=== PATIENT | male | born 1980 | race Caucasian/White ===

== ENCOUNTER 2019-04-22 07:18 | Emergency (ER) | payer OTHER ==
[~2019-04-22] VITALS: Ht 167.6 cm; Wt 85.0 kg
[~2019-04-22 07:18] MED LIST: CARB15DR91 EACH EAR; DOCU-28 PO; HYDR25SU32 RC; IBUP-1051 PO; IBUP-1984 PO
[2019-04-22 07:20] VITALS: BP 106/72
[2019-04-22] MEDS ORDERED: BENZ-16 PO (07:34)
== END 2019-04-22 08:01 | disposition home or self-care (01) ==
LOC: ER 07:18
DX: J06.9 Acute upper respiratory infection, unspecified (principal); F32.9 Major depressive disorder, single episode, unspecified; Z79.899 Other long term (current) drug therapy
CPT/HCPCS: 99283

== ENCOUNTER 2019-04-26 01:00 | Emergency (ER) | payer SELFPAY ==
[~2019-04-26] VITALS: Ht 167.6 cm; Wt 80.9 kg
[~2019-04-26 01:00] MED LIST changes: +BENZ-16 PO
[2019-04-26] MEDS ORDERED: ALBU18HF2 INH (02:09)
[2019-04-26] MEDS ORDERED: DOXY100C43 PO (02:09)
[2019-04-26] MEDS ORDERED: PRED20TA PO (02:09)
[2019-04-26 02:21] VITALS: BP 110/73
== END 2019-04-26 02:27 | disposition home or self-care (01) ==
LOC: ER 01:01
DX: J20.9 Acute bronchitis, unspecified (principal); F32.9 Major depressive disorder, single episode, unspecified; F17.210 Nicotine dependence, cigarettes, uncomplicated; Z79.899 Other long term (current) drug therapy
CPT/HCPCS: 93005; 99283; 99406

== ENCOUNTER 2019-09-20 06:31 | Emergency (ER) | payer OTHER ==
[~2019-09-20] VITALS: Ht 167.6 cm; Wt 77.3 kg
[~2019-09-20 06:31] MED LIST changes: +ALBU18HF2 INH; -BENZ-16 PO
[2019-09-20 06:40] VITALS: BP 122/71
[2019-09-20] MEDS ORDERED: proparacaine 0.5% ophthalmic drops 15ml EACHEYE ONE (06:50)
[2019-09-20] MEDS ORDERED: ERYT1OIN6 EACHEYE (07:02)
== END 2019-09-20 07:09 | disposition home or self-care (01) ==
LOC: ER 06:32
DX: H10.33 Unspecified acute conjunctivitis, bilateral (principal); F32.9 Major depressive disorder, single episode, unspecified; Z87.01 Personal history of pneumonia (recurrent); Z79.2 Long term (current) use of antibiotics; Z79.899 Other long term (current) drug therapy
CPT/HCPCS: 99283

== ENCOUNTER 2023-04-17 19:16 | Emergency (ER) | payer SELFPAY ==
[~2023-04-17] VITALS: Ht 167.6 cm; Wt 85.5 kg
[2023-04-17 19:22] VITALS: BP 153/91; PULSE 106; RESP 18; TEMP 98.6; O2SAT 99
[2023-04-17] MEDS ORDERED: PHEN1SUP96 PR (20:48)
== END 2023-04-17 20:55 | disposition home or self-care (01) ==
LOC: ER 19:17
DX: K64.8 Other hemorrhoids (principal); K62.89 Other specified diseases of anus and rectum; F32.A Depression, unspecified
CPT/HCPCS: 99282